=== PATIENT | female | born 1960 ===

== ENCOUNTER 2024-04-17 14:34 | Outpatient (AMB) | payer MEDICARE, OTHER, SELFPAY ==
[2024-04-17 14:46] VITALS: BP 138/82; PULSE 75; O2SAT 96; BMI 35.5
--- NOTE | 2024-04-17 14:46 | A.OFFVIS_ITS ---
Vital Signs 04/17/24 14:46 Height 5 ft Weight 182 lb BMI 35.5 BP 138/82 Blood Pressure Location Lt brachial Position Sitting Pulse 75 Pulse Source Doppler Pulse Oximetry (%) 96 Oxygen Delivery Method Room Air Intake Visit Reasons: nocturnal hypoxemia Allergies oxycodone Adverse Reaction (Severe, Uncoded 04/17/24 14:51) Vomiting HPI HPI nocturnal hypoxemia: Details: 63-year-old lady with underlying mild intermittent asthma previously controlled on as needed albuterol MDI and recent diagnosis of mild obstructive sleep apnea with AHI of 5 and hypoxemia for 4 minutes during the sleep study referred for pulmonary evaluation. Patient states that her asthma symptoms for previously well controlled, however she is experiencing them more often. She does have family history of lung disease including asthma in her daughter. [facility] Social History (Updated 04/17/24 @ 14:52 by Rin Austin [facility]) Patient Tobacco Use Status: Never used Tobacco Review of Systems Const Denies daytime sleepiness, Denies excessive sweating, Denies fatigue, Denies fever(s), Denies lethargy, Denies malaise, Denies night sweats, Denies snoring and Denies weight loss Eyes Denies blurry vision and Denies itchy eyes ENT Denies nasal congestion, Denies post nasal drip, Denies sinus pain, Denies sinus pressure and Denies other ( Thrush) Card Denies chest pain, Denies pedal edema, Denies dyspnea, Denies orthopnea and Denies paroxysmal nocturnal dyspnea Resp Denies cough, Denies hemoptysis, Denies excessive phlegm production, Denies dyspnea, Denies snoring and Denies wheezing GI Denies abdominal pain and Denies heartburn Musc Denies myalgias, Denies arthralgias and Denies joint swelling Skin/Breast Denies rash Neuro Denies memory loss and Denies seizure-like activity Psych Denies abnormal sleep pattern, Denies anxiety and Denies memory loss Endo Denies excessive sweating, Denies fatigue and Denies heat intolerance Gary/Lymph Denies easy bruising Aller/Immun Denies itchy eyes, Denies seasonal rhinorrhea and Denies wheezing Physical Exam Vital Signs: Last Vital Signs Pulse 75 04/17/24 14:46 BP 138/82 04/17/24 14:46 Pulse Ox 96 04/17/24 14:46 Oxygen Delivery Method Room Air 04/17/24 14:46 BMI result Body Mass Index 35.5 Const General: no acute distress and alert Nutritional Appearance: obese Orientation/consciousness: Other orientation findings ( oriented) HEENT Head: Yes atraumatic Eyes General: appearance normal, both eyes and all related structures Sclerae: sclerae normal EOM: EOMs intact bilaterally Neck Neck: Yes supple Lymphatic: no lymphadenopathy noted Resp Effort & Inspection: normal respiratory effort and no use of accessory muscles Auscultation: clear to auscultation bilaterally Cardio Rate: regular rate Rhythm: regular rhythm Heart sounds: no gallops, no murmurs and no rubs Skin General skin exam: other ( warm) Extrem General: No clubbing, No cyanosis and No edema Assessment & Plan Assessment & Plan (1) Asthma: Code(s): J45.909 - Unspecified asthma, uncomplicated Category: Medical Plan: Underlying asthma of unclear severity. Will obtain full PFT. Continue albuterol MDI as needed. Patient is not interested in controller ICS at this time. (2) KRYSTIN (obstructive sleep apnea): Code(s): G47.33 - Obstructive sleep apnea (adult) (pediatric) Category: Medical Plan: Results of in-lab study reviewed, underlying AHI of 5 with hypoxemia for 4 minutes only. Patient is not interested in CPAP therapy. Jaw advancement device utilization discussed. (3) Nocturnal hypoxemia: Code(s): G47.34 - Idiopathic sleep related nonobstructive alveolar hypoventilation Category: Medical Plan: Not meeting criteria for supplemental oxygen. Likely related to underlying mild obstructive sleep apnea. Will repair check overnight oximetry after patient is more comfortable with jaw advancement device. Coding Level of Care Code New Pt Level 4 (06102) Diagnoses Asthma J45.909 KRYSTIN (obstructive sleep apnea) G47.33 Nocturnal hypoxemia G47.34
== END 2024-04-17 15:24 | disposition home or self-care (01) ==
PROVIDERS: PCP Internal Medicine; Visit Provider Internal Medicine Pulmonary Disease
DX: J45.909 Unspecified asthma, uncomplicated (principal); G47.33 Obstructive sleep apnea (adult) (pediatric); G47.34 Idiopathic sleep related nonobstructive alveolar hypoventilation
CPT/HCPCS: 99204

== ENCOUNTER → 2024-04-17 14:34 | Outpatient (BNVA) | payer MEDICARE, OTHER, SELFPAY | PROVIDERS: PCP Internal Medicine; Visit Provider Internal Medicine Pulmonary Disease | DX: J45.909 Unspecified asthma, uncomplicated (principal); G47.33 Obstructive sleep apnea (adult) (pediatric); G47.34 Idiopathic sleep related nonobstructive alveolar hypoventilation | CPT/HCPCS: 99202 ==